=== PATIENT | male | born 1970 | race Caucasian/White ===

== ENCOUNTER → 2018-01-09 | Outpatient (CLI) | payer SELFPAY ==
--- NOTE | 2018-01-10 07:30 | CT ---
EXAMINATION TYPE: CT ankle RT wo con DATE OF EXAM: 01/09/2018 COMPARISON: NONE HISTORY: Right ankle pain after 12 foot fall. Displaced posterior malleolus fracture per order. CT DLP: 300 mGycm Automated exposure control for dose reduction was used. FINDINGS: Correlating with patient history there is acute comminuted minimally displaced intra-articular fractu re of the posterior malleolus seen best on sagittal images with a 2.7 x 0.9 cm fracture fragment iden tified. At inferior aspect of the fracture there is note made of a 6 mm fracture fragment within the fracture line seen best sagittal image 10 and axial image 53. There is tiny ossific fragmentation pos sible avulsion type fracture from the medial malleolus coronal image 17 and 18 with 3 mm ossific frac ture fragment identified. There is mild to moderate spurring from the lateral malleolus without fract ure. There is mild spurring from the medial superior aspect of the talus. No asymmetry is seen. There is moderate diffuse subcutaneous edema and mild to moderate focal soft tissue swelling over the medial and lateral malleoli. Talocalcaneal joint is preserved. No calcaneal fracture is seen. Achill es tendon is intact. Normal sinus tarsi fat is seen. IMPRESSION: THERE IS ACUTE COMMINUTED MINIMALLY DISPLACED INTRA-ARTICULAR POSTERIOR MALLEOLUS FRACTURE DETAILE D ABOVE
== END | disposition home or self-care (01) ==
LOC: RADCTMAIN 18:23
PROVIDERS: ATTEND Orthopaedic Surgery
DX: S82.891A Other fracture of right lower leg, initial encounter for closed fracture (principal)

== ENCOUNTER → 2018-02-12 | Outpatient (CLI) | payer SELFPAY ==
--- NOTE | 2018-02-12 09:46 | US ---
EXAMINATION TYPE: US venous doppler duplex LE RT DATE OF EXAM: 02/12/2018 9:36 AM COMPARISON: NONE CLINICAL HISTORY: M25.571 pain right lower leg. Pt states right calf pain, right ankle injury 6 weeks ago SIDE PERFORMED: Right TECHNIQUE: The lower extremity deep venous system is examined utilizing real time linear array sonog lee with graded compression, doppler sonography and color-flow sonography. VESSELS IMAGED: External Iliac Vein (EIV) Common Femoral Vein Deep Femoral Vein Greater Saphenous Vein * Femoral Vein Popliteal Vein Small Saphenous Vein * Proximal Calf Veins (* superficial vessels) Right Leg: Negative for DVT Attempted to call results to phone number given on order, no answer/ Dr's office called at time of exam, office closed Grayscale, color doppler, spectral doppler imaging performed of the deep veins of the right lower ext remity. There is normal flow, compressibility, vascular waveforms. Subcutaneous edema below the kne e is noted. IMPRESSION: No ultrasound evidence for acute DVT in the right lower extremity.
== END | disposition home or self-care (01) ==
LOC: RADUSWWP 09:11
PROVIDERS: ATTEND Orthopaedic Surgery
DX: M25.571 Pain in right ankle and joints of right foot (principal)